=== PATIENT | female | born 1970 | race American Indian/Alaskan Native ===

== ENCOUNTER 2017-03-31 14:43 | Outpatient (CLI) | payer OTHER ==
--- NOTE | 2017-03-31 15:33 | Mammography Report ---
LEFT DIGITAL DIAGNOSTIC MAMMOGRAM with CAD: 03/31/17 14:43:00 CLINICAL: Follow-up of a probably benign lymph node.. COMPARISON:08/14/16 FINDINGS: Routine views demonstrate a stable benign-appearing left axillary lymph nodes. The breast is almost entirely fatty. No mass, architectural distortion or suspicious calcifications. IMPRESSION: No mammographic evidence of malignancy.Benign left axillary lymph nodes. BI-RADS CATEGORY: 2 -- Benign RECOMMENDATION: Return to routine mammographic screening. ACR BI-RADS MAMMOGRAPHIC CODES: 0 = Needs additional imaging evaluation; 1 = Negative; 2 = Benign; 3 = Probably benign; 4 = Suspicious; 5 = Malignant; 6 = Known biopsy-proven malignancy COMMENT: 1. Dense breast tissue, i.e., adenosis, fibrocystic changes, etc., may obscure an underlying neoplasm. 2. Approximately 10% of cancers are not detected with mammography. 3. A negative mammography report should not delay biopsy if a clinically suspicious mass is present. COMMENT: Patient follow-up letters are generated by our [employer] application.
== END 2017-03-31 14:44 | disposition home or self-care (01) ==
LOC: SPVWC 14:43
PROVIDERS: ATTEND Family Medicine
DX: R92.8 Other abnormal and inconclusive findings on diagnostic imaging of breast (principal); I88.9 Nonspecific lymphadenitis, unspecified
CPT/HCPCS: G0206-LT

== ENCOUNTER 2017-09-02 16:03 | Outpatient (CLI) | payer OTHER ==
--- NOTE | 2017-09-03 09:58 | Mammography Report ---
BILATERAL DIGITAL SCREENING MAMMOGRAM with CAD: 09/02/17 16:03:00 CLINICAL: Routine screening. COMPARISON:03/31/17 FINDINGS: The breasts are almost entirely fatty. No mass, architectural distortion or suspicious calcifications. IMPRESSION: No mammographic evidence of malignancy. BI-RADS CATEGORY: 2 -- Benign RECOMMENDATION: Routine mammographic screening in one year. COMMENT: Patient follow-up letters are generated by our [email or web address] application.
== END 2017-09-02 16:04 | disposition home or self-care (01) ==
LOC: SPVWC 16:03
PROVIDERS: ATTEND Family Medicine
DX: Z12.31 Encounter for screening mammogram for malignant neoplasm of breast (principal)
CPT/HCPCS: 77067; G0202

== ENCOUNTER 2018-09-12 19:13 | Emergency (ER) | payer OTHER ==
[2018-09-12] MEDS ORDERED: MOTRIN PO ONE (22:42)
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
[2018-09-13 00:31] VITALS: BP 139/79
== END 2018-09-13 00:31 | disposition home or self-care (01) ==
LOC: ED 19:13
DX: S39.012A Strain of muscle, fascia and tendon of lower back, initial encounter (principal); Z90.710 Acquired absence of both cervix and uterus; V89.2XXA Person injured in unspecified motor-vehicle accident, traffic, initial encounter; Y93.89 Activity, other specified; Y92.488 Other paved roadways as the place of occurrence of the external cause; Y99.8 Other external cause status
CPT/HCPCS: 72100; 99283

== ENCOUNTER 2019-11-27 16:07 | Outpatient (CLI) | payer OTHER ==
--- NOTE | 2019-11-28 08:31 | Mammography Report ---
DIGITAL SCREENING MAMMOGRAM WITH CAD, 11/27/2019 INDICATION: Routine screening mammography. TECHNIQUE: Digital bilateral 2D mammography was obtained in the craniocaudal and mediolateral obliq ue projections. This examination was interpreted with the benefit of Computer-Aided Detection analysi s. COMPARISON: 11/24/2018 FINDINGS: Breast Density: The breasts are almost entirely fatty. There is no evidence of dominant mass, suspicious calcifications or architectural distortion in eithe r breast. IMPRESSION: No mammographic evidence of malignancy. Follow up recommendation: Routine yearly BI-RADS Category 1: Negative. A "normal" or negative report should not discourage follow up or biopsy of a clinically significant f inding. A written summary of these findings will be mailed to the patient. The patient will be entered into a mammography reporting system which will generate a reminder letter for the patient's next appointmen t at the appropriate interval. The [employer] recommends yearly mammograms starting at age 40 and continuing as l elvis as a woman is in good health. Breast MRI is recommended for women with an approximate 20-25% or greater lifetime risk of breast cancer, including women with a strong family history of breast or ova hilary cancer or who have been treated for Hodgkin's disease. Signer Name: Brock Doll MD Signed: 11/28/2019 8:26 AM Workstation Name: [id number]
== END 2019-11-27 16:08 | disposition home or self-care (01) ==
LOC: SPVWC 16:07
PROVIDERS: ATTEND Family Medicine
DX: Z12.31 Encounter for screening mammogram for malignant neoplasm of breast (principal)
CPT/HCPCS: 77067

== ENCOUNTER 2020-11-28 15:59 | Outpatient (CLI) | payer OTHER ==
--- NOTE | 2020-11-28 17:16 | Mammography Report ---
DIGITAL SCREENING MAMMOGRAM WITH CAD, 11/28/2020 CLINICAL INFORMATION / INDICATION: Routine screening mammography. SCREENING MAMMO TECHNIQUE: Digital bilateral 2D mammography was obtained in the craniocaudal and mediolateral obliqu e projections. This examination was interpreted with the benefit of Computer-Aided Detection analysis . COMPARISON: Prior mammograms 11/27/2019 and 11/24/2018 FINDINGS: Breast Density: The breasts are almost entirely fatty. No dominant mass, suspicious calcifications, or architectural distortion in either breast. There has been no significant change compared with the prior examinations. IMPRESSION: No mammographic evidence of malignancy. Follow up recommendation: Routine yearly BI-RADS Category 1: Negative. A "normal" or negative report should not discourage follow up or biopsy of a clinically significant f inding. A written summary of these findings will be mailed to the patient. The patient will be entered into a mammography reporting system which will generate a reminder letter for the patient's next appointmen t at the appropriate interval. The [employer] recommends yearly mammograms starting at age 40 and continuing as l elvis as a woman is in good health. Breast MRI is recommended for women with an approximate 20-25% or greater lifetime risk of breast cancer, including women with a strong family history of breast or ova hilary cancer or who have been treated for Hodgkin's disease. Signer Name: An Way MD Signed: 11/28/2020 5:12 PM Workstation Name: [id number]
== END 2020-11-28 16:00 | disposition home or self-care (01) ==
LOC: SPVWC 15:59
PROVIDERS: ATTEND Family Medicine
DX: Z12.31 Encounter for screening mammogram for malignant neoplasm of breast (principal)
CPT/HCPCS: 77067

== ENCOUNTER 2021-10-01 14:32 | Emergency (ER) | payer OTHER ==
[2021-10-01 15:17] VITALS: BP 127/89
--- NOTE | 2021-10-01 15:28 | Emergency Department Report ---
ED ENT HPI - General Chief complaint: Nosebleed Stated complaint: FREQ NOSE BLEED Time Seen by Provider: 10/01/21 15:15 Source: patient Mode of arrival: Ambulatory Limitations: No Limitations - History of Present Illness Initial comments: This is a 51-year-old female nontoxic, well nourished in appearance, no acute signs of distress presents to the ED with c/o of acute on chronic intermittent epistaxis x1 month. Patient stated had about 2-3 episodes for the past month. Patient stated she does follow-up with her primary care doctor. Patient has hi story of hypertension which she is taking medication for. Patient stated last episode was this morning and stated seen some clots that was only for a few seconds but has resolved since then. Currently patient denies any epistaxis or symptoms. Patient denies any other complaints or symptoms. Denies any headache, neck pain, fever, chills, nausea, vomiting, numbness or tingling. Denies any easily bruising. Denies any allergies. MD complaint: epistaxis -: month(s) Severity scale (0 -10): 0 Consistency: now resolved Improves with: none Worsens with: none Associated Symptoms: denies: fever, cough, gum swelling, toothache, pain with swallowing, sore throat, tinnitus, hearing loss, discharge from ear, rhinorrhea - Related Data Previous Rx's Medication Instructions Recorded Last Taken Type Ibuprofen [Motrin] 800 mg PO Q8H PRN #20 tablet 02/16/15 Unknown Rx Neomycin Rowe/Colist/Hc/Thonzon 4 drop AU TID #1 bottle 02/16/15 Unknown Rx [Cortisporin-Tc Ear Susp 0.33/0.3/1/0.05%] traMADoL [Ultram] 50 mg PO Q6HR PRN #14 tablet 02/16/15 Unknown Rx Cyclobenzaprine [Flexeril] 10 mg PO QHS PRN #10 tablet 09/12/18 Unknown Rx Ibuprofen [Motrin] 600 mg PO Q8H PRN #20 tablet 09/12/18 Unknown Rx Allergies Allergy/AdvReac Type Severity Reaction Status Date / Time No Known Allergies Allergy Verified 10/01/21 14:47 ED Dental HPI - General Chief complaint: Nosebleed Stated complaint: FREQ NOSE BLEED Time Seen by Provider: 10/01/21 15:15 Source: patient Mode of arrival: Ambulatory Limitations: No Limitations - Related Data Previous Rx's Medication Instructions Recorded Last Taken Type Ibuprofen [Motrin] 800 mg PO Q8H PRN #20 tablet 02/16/15 Unknown Rx Neomycin Rowe/Colist/Hc/Thonzon 4 drop AU TID #1 bottle 02/16/15 Unknown Rx [Cortisporin-Tc Ear Susp 0.33/0.3/1/0.05%] traMADoL [Ultram] 50 mg PO Q6HR PRN #14 tablet 02/16/15 Unknown Rx Cyclobenzaprine [Flexeril] 10 mg PO QHS PRN #10 tablet 09/12/18 Unknown Rx Ibuprofen [Motrin] 600 mg PO Q8H PRN #20 tablet 09/12/18 Unknown Rx Allergies Allergy/AdvReac Type Severity Reaction Status Date / Time No Known Allergies Allergy Verified 10/01/21 14:47 ED Review of Systems ROS: Stated complaint: FREQ NOSE BLEED Other details as noted in HPI Comment: All other systems reviewed and negative Constitutional: denies: chills, fever Eyes: denies: eye pain, eye discharge, vision change ENT: epistaxis. denies: ear pain, throat pain, dental pain, hearing loss, congestion Respiratory: denies: cough, shortness of breath, wheezing Cardiovascular: denies: chest pain, palpitations Endocrine: no symptoms reported Gastrointestinal: denies: abdominal pain, nausea, diarrhea Genitourinary: denies: urgency, dysuria, discharge Musculoskeletal: denies: back pain, joint swelling, arthralgia Skin: denies: rash, lesions Neurological: denies: headache, weakness, paresthesias Psychiatric: denies: anxiety, depression Hematological/Lymphatic: denies: easy bleeding, easy bruising ED Past Medical Hx - Surgical History Additional Surgical History: HYSTERECTOMY - Social History Smoking Status: Never Smoker Substance Use Type: None - Medications Home Medications: Home Medications Medication Instructions Recorded Confirmed Last Taken Type Ibuprofen [Motrin] 800 mg PO Q8H PRN #20 tablet 02/16/15 Unknown Rx Neomycin Rowe/Colist/Hc/Thonzon 4 drop AU TID #1 bottle 02/16/15 Unknown Rx [Cortisporin-Tc Ear Susp 0.33/0.3/1/0.05%] traMADoL [Ultram] 50 mg PO Q6HR PRN #14 tablet 02/16/15 Unknown Rx Cyclobenzaprine [Flexeril] 10 mg PO QHS PRN #10 tablet 09/12/18 Unknown Rx Ibuprofen [Motrin] 600 mg PO Q8H PRN #20 tablet 09/12/18 Unknown Rx ED Physical Exam - General Limitations: No Limitations General appearance: alert, in no apparent distress - Head Head exam: Present: atraumatic, normocephalic - Eye Eye exam: Present: normal appearance, PERRL, EOMI - ENT ENT exam: Present: normal exam, normal orophraynx, other (No epistaxis. No nasal hematoma or polyps noted on exam. Normal nostril examination bilaterally.) - Neck Neck exam: Present: normal inspection, full ROM. Absent: lymphadenopathy - Respiratory Respiratory exam: Absent: respiratory distress - Cardiovascular Cardiovascular Exam: Present: regular rate - Extremities Exam Extremities exam: Present: full ROM - Back Exam Back exam: Present: full ROM - Neurological Exam Neurological exam: Present: alert, oriented X3, normal gait - Psychiatric Psychiatric exam: Present: normal affect, normal mood - Skin Skin exam: Present: warm, dry, intact, normal color. Absent: rash ED Course Vital Signs 10/01/21 14:48 Temperature 98.6 F Pulse Rate 87 Respiratory 18 Rate Blood Pressure 127/89 O2 Sat by Pulse 100 Oximetry - Reevaluation(s) Reevaluation #1: 10/01/21 15:27 Patient is speaking in full sentences with no signs of distress noted. ED Medical Decision Making - Medical Decision Making This is a 51-year-old female that presents with epistaxis. Patient is stable and was examined by me. Physical exam otherwise is unremarkable. Vital signs are stable. Patient does follow a primary care doctor. Patient was instructed to follow-up with a primary care doctor in 3-5 days or if symptoms worsen and continue return to emergency room as soon as possible. At time of discharge, the patient does not seem toxic or ill in appearance. No acute signs of distress noted. Patient agrees to discharge treatment plan of care. No further questions noted by the patient. Critical care attestation.: If time is entered above; I have spent that time in minutes in the direct care of this critically ill patient, excluding procedure time. ED Disposition Clinical Impression: Epistaxis Disposition: 01 HOME / SELF CARE / HOMELESS Is pt being admited?: No Does the pt Need Aspirin: No Condition: Stable Instructions: Nosebleed, [id number] Additional Instructions: Follow-up with a primary care doctor in 3-5 days or if symptoms worsen and continue return to emergency room as soon as possible. Referrals: PRIMARY CARE, [Referring] - 3-5 Days DAVION DAVE MD [Staff Physician] - 3-5 Days Forms: Work/School Release Form(ED) Time of Disposition: 15:28
== END 2021-10-02 06:17 | disposition home or self-care (01) ==
LOC: ED 14:32
DX: R04.0 Epistaxis (principal); Z90.710 Acquired absence of both cervix and uterus
CPT/HCPCS: 99281

== ENCOUNTER 2021-12-02 15:32 | Outpatient (CLI) | payer OTHER ==
--- NOTE | 2021-12-03 08:59 | Mammography Report ---
DIGITAL SCREENING MAMMOGRAM WITH CAD, 12/02/2021 CLINICAL INFORMATION / INDICATION: Routine screening TECHNIQUE: Digital bilateral 2D mammography was obtained in the craniocaudal and mediolateral obliqu e projections. This examination was interpreted with the benefit of Computer-Aided Detection analysis . COMPARISON: 11/28/2020 FINDINGS: Breast Density: There are scattered areas of fibroglandular density. No dominant mass, suspicious calcifications, or architectural distortion in either breast. Benign-appearing calcifications are again seen. IMPRESSION: No mammographic evidence of malignancy. Follow up recommendation: Routine yearly BI-RADS Category 2: BENIGN. A "normal" or negative report should not discourage follow up or biopsy of a clinically significant f inding. A written summary of these findings will be mailed to the patient. The patient will be entered into a mammography reporting system which will generate a reminder letter for the patient's next appointmen t at the appropriate interval. The [employer] recommends yearly mammograms starting at age 40 and continuing as l elvis as a woman is in good health. Breast MRI is recommended for women with an approximate 20-25% or greater lifetime risk of breast cancer, including women with a strong family history of breast or ova hilary cancer or who have been treated for Hodgkin's disease. Signer Name: Zachariah Ramirez MD Signed: 12/03/2021 8:55 AM Workstation Name: [id number]
== END 2021-12-02 15:33 | disposition home or self-care (01) ==
LOC: SPVWC 15:32
PROVIDERS: ATTEND Nurse Practitioner Family
DX: Z12.31 Encounter for screening mammogram for malignant neoplasm of breast (principal)
CPT/HCPCS: 77067